=== PATIENT | female | born 1940 | race Caucasian/White ===

== ENCOUNTER → 2023-09-12 | Day surgery (SDC) | payer MEDICARE, OTHER ==
[2023-09-11 08:39] LABS: BASOPHILS % 0.5 % (0.0-1.0); EOSINOPHILS # (AUTO) 0.1 (0.0-0.4); EOSINOPHILS % 1.2 % (0.0-6.0); HEMATOCRIT 40.2 % (34.2-44.1); HEMOGLOBIN 12.4 g/dL (12.0-16.0); LYMPHOCYTES # (AUTO) 2.5 (1.0-3.2); LYMPHOCYTES % 32.4 % (18.0-39.1); MEAN CORPUSCULAR HEMOGLOBIN 29.7 pg (28-32); MEAN CORPUSCULAR HGB CONC 30.8 g/dL (31-35); MEAN CORPUSCULAR VOLUME 96.4 fL (81-99); MONOCYTES # (AUTO) 0.4 (0.2-0.8); NEUTROPHILS # (AUTO) 4.7 (2.1-6.9); NEUTROPHILS % 60.6 % (38.7-80.0); PLATELET COUNT 309 x10e3/uL (140-360); RED BLOOD COUNT 4.17 x10e6/uL (3.6-5.1); RED CELL DISTRIBUTION WIDTH 12.8 % (11.7-14.4); WHITE BLOOD COUNT 7.78 x10e3/uL (4.8-10.8)
[~2023-09-12] MED LIST: GLIPIZIDE5 MG PO; LANTUS 3ML100 UNITS/ SQ; LEVOTHYROXINE75 MCG PO; OR PHACO EYE KIT ONE; PREOP PHACO EYE KIT ONE; VASOTEC10 M1 PO
[2023-09-12] MEDS: INSULIN REGULAR, HUMAN 100 UNIT/1 ML ONE ×2 (08:26→09:37)
[2023-09-12] MEDS: LACTATED RINGER'S 1,000 ML ONE (09:04)
[2023-09-12 10:42] VITALS: TEMP 97.1
[2023-09-12 11:10] VITALS: BP 165/94; PULSE 70; RESP 16; O2SAT 99
== END | disposition home or self-care (01) ==
LOC: OR 07:32
PROVIDERS: ATTEND Ophthalmology
DX: H25.11 Age-related nuclear cataract, right eye (principal); I10 Essential (primary) hypertension; E78.5 Hyperlipidemia, unspecified; E11.9 Type 2 diabetes mellitus without complications; E03.9 Hypothyroidism, unspecified; K57.90 Diverticulosis of intestine, part unspecified, without perforation or abscess without bleeding; Z01.810 Encounter for preprocedural cardiovascular examination; Z01.812 Encounter for preprocedural laboratory examination; Z79.84 Long term (current) use of oral hypoglycemic drugs; Z79.4 Long term (current) use of insulin; Z79.899 Other long term (current) drug therapy; Z86.73 Personal history of transient ischemic attack (TIA), and cerebral infarction without residual deficits
CPT/HCPCS: 36415 ×2; 66984; 82948; 85025; 93005; J7121; V2788